=== PATIENT | female | born 1960 | race Caucasian/White ===

== ENCOUNTER → 2024-07-03 | Outpatient (CLI) | payer MEDICARE, SELFPAY ==
--- NOTE | 2024-07-03 08:08 | CT_ITS ---
STUDY: CT SOFT TISSUE NECK WITH CONTRAST REASON FOR EXAM: Female, 63 years old. NHL, IV CONTRAST RADIATION DOSAGE (If Supplied By Facility): CTDIvol = ( 9.88 ) mGy, DLP = ( 952.09 ) mGycm TECHNIQUE: The patient was scanned in a multi-detector CT scanner. High resolution transaxial imaging was performed following intravenous administration of IV 100mL Isovue-370. Sagittal and coronal images were reconstructed. Individualized dose optimization techniques were used for this CT. COMPARISON: None. FINDINGS: Normal bilateral parotid glands. Normal bilateral manager media spaces. Normal bilateral parapharyngeal spaces. Normal bilateral carotid spaces. Normal bilateral sublingual and submandibular glands and spaces. Normal visualized nasopharynx. Normal retropharyngeal space. Normal perivertebral space. Normal visualized bilateral faucial tonsils. The visualized tongue, tongue base and oropharynx are normal. The visualized cervical lymph nodes (levels I-) are within normal size limits, and maintain normal morphology. There is no demonstrated solid or cystic mass lesion. There is no abnormal contrast enhancement. Normal epiglottis, bilateral vallecula and hypopharynx. The pre-epiglottic and paraglottic adipose spaces are normal. Normal visualized bilateral piriform sinuses, aryepiglottic folds, vocal cords, and arytenoid-cricoid articulations. Normal subglottic trachea. Normal bilateral lobes of the thyroid gland. Normal visualized pulmonary apices. Normal visualized paranasal sinuses. There is multilevel degenerative changes of the cervical spine. There is a 5.5 mm x 6.5 mm rounded hypodensity in the left side of the C5 vertebrae. CT/Soft Tissue Neck WITH Contrast IMPRESSION: Normal enhanced CT examination of the soft tissues of the neck. Electronically Signed: Deejay Richmond MD at 13:11 EST ,
--- NOTE | 2024-07-03 08:08 | CT_ITS ---
STUDY: CT CHEST, ABDOMEN T PELVIS WITH CONTRAST REASON FOR EXAM: Female, 63 years old. NHL, IV CONTRAST. History of radiation of the right chest wall. RADIATION DOSAGE (If Supplied By Facility): CTDIvol = ( 9.88 ) mGy, DLP = ( 952.09 ) mGycm TECHNIQUE: Transaxial imaging was performed following intravenous administration of IV 100mL Isovue-370. Multiplanar coronal and sagittal images were reformatted. Individualized dose optimization techniques were used for this CT. COMPARISON: No relevant priors. FINDINGS: CHEST Minimal degree of the deep dependent bibasilar atelectasis. There is no demonstrated pleural abnormality. Normal heart and pericardium. No coronary artery calcification is seen. Normal mediastinum. Normal hilar regions. Normal unenhanced pulmonary arteries. Normal aorta arch and descending thoracic aorta. There are multi-level degenerative changes of the thoracic spine. ABDOMEN Normal liver. Normal gallbladder and extrahepatic biliary system. Normal spleen. Normal pancreas. Normal bilateral adrenal glands. There is a 2.1 cm cyst in the medial anterior aspect of the right kidney. Normal left kidney. Moderate amount of residual food particles and fluid seen within the stomach. Normal small intestine. There are scattered colonic diverticula consistent with diverticulosis. The appendix is visualized and appears normal. Normal abdominal aorta. Normal inferior vena cava. Normal retroperitoneum. Normal abdominal wall. There are mild degenerative changes of the visualized lumbar spine. 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 PELVIS Normal urinary bladder. Normal visualized small intestine. Normal visualized colon. There is no pelvic fluid. There is no pelvic lymphadenopathy or mass lesion. Normal visualized pelvic arteries. CT/CT Chest, Abd, Pel w/Contrast IMPRESSION: Right renal cyst. Scattered sigmoid diverticula. Minimal degree of dependent bibasilar atelectasis. Electronically Signed: Deejay Richmond MD at 12:49 EST ,
[2024-07-03 08:34] LABS: CREATININE FINGERSTICK < 1.0 mg/dL (0.55-1.02); EGFR FINGERSTICK > 60.0000 mL/min (>60)
== END | disposition home or self-care (01) ==
PROVIDERS: Referring Provider Internal Medicine Hematology & Oncology; Visit Provider Internal Medicine Hematology & Oncology
DX: Z01.812 Encounter for preprocedural laboratory examination (principal); C85.99 Non-Hodgkin lymphoma, unspecified, extranodal and solid organ sites; C82.98 Follicular lymphoma, unspecified, lymph nodes of multiple sites
CPT/HCPCS: 70491; 71260; 74177; Q9967

== ENCOUNTER → 2025-07-02 | Outpatient (CLI) | payer MEDICARE, SELFPAY ==
--- NOTE | 2025-07-02 13:10 | CT_ITS ---
PROCEDURE: CT CHEST, ABD, PEL W/CONTRAST 07/02/2025 REASON FOR EXAM: F/U NHL IV CONTRAST ONLY TECHNIQUE: Chest, abdomen and pelvis CT with intravenous contrast. Coronal and Sagittal reconstruction series were provided. One or more dose reduction techniques were used (e.g., Automated exposure control, adjustment of the mA and/or kV according to patient size, use of iterative reconstruction technique. PATIENT PREPARATION: Per protocol ORAL CONTRAST : Was administered CONTRAST: Isovue-300 VOLUME: 87mL. RADIATION DOSE SUMMARY: DLP: 718.48 mGycm COMPARISON: Previous examination dated 07/03/2024 FINDINGS: CT CHEST: Hardware: None Lymph nodes: No axillary, mediastinal or hilar lymphadenopathy. Heart and Vasculature: No pericardial effusion or significant cardiomegaly. Normal aorta. No significant coronary arterial calcifications. Central pulmonary arteries are unremarkable. Lungs and Airways: Clear. No focal consolidation pulmonary nodule or other abnormality. Patent airway. Pleura: No pneumothorax. No effusion. Bones: Unremarkable. Mild degenerative changes. No destructive osseous lesion. CT ABDOMEN/PELVIS: LUNG BASES: Clear. No pleural effusion. LIVER:No enlargement, atrophy, abnormal density, or significant focal lesion. GALLBLADDER/BILIARY:No dilatation or calcification. No gallstones PANCREAS:No lesion, fluid collection, or duct dilatation. SPLEEN:No enlargement or focal lesion. ADRENALS:No mass or enlargement. KIDNEYS AND URETERS:Stable bilateral renal cysts. No hydronephrosis or nephrolithiasis. URINARY BLADDER:No focal wall thickening, trabeculation, lesion, or calculus. REPRODUCTIVE ORGANS:Normal uterus and adnexa. Rectal prolapse. AORTA/VASCULAR:No aneurysm or dissection. RETROPERITONEUM:No mass or adenopathy. LYMPH NODES:No adenopathy. INTRAPERITONEAL SPACE:No free air. No significant fluid collection. No mass. STOMACH/BOWEL/MESENTERY:No mass, obstruction, or bowel wall thickening. No evidence of appendicitis or diverticulitis ABDOMINAL WALL:No fluid collections or foreign bodies. No mass or adenopathy. BONES:No osseous lesions or fractures. Stable grade 1 anterolisthesis of L4 on L5 related to facet arthropathy. No destructive osseous lesion. CT/CT Chest, Abd, Pel w/Contrast IMPRESSION: No evidence of recurrent or metastatic disease. Stable examination. No overt lymphadenopathy. Stable renal cysts. Reading Location: [id number]
--- NOTE | 2025-07-02 13:10 | CT_ITS ---
PROCEDURE: SOFT TISSUE NECK WITH CONTRAST 07/02/2025 REASON FOR EXAM: F/U NHL IV CONTRAST ONLY TECHNIQUE: Procedure Code: CTNEW Modality: CT Procedure: SOFT TISSUE NECK WITH CONTRAST CONTRAST: Isovue 370 VOLUME: 100 mL One or more dose reduction techniques were used (e.g., Automated exposure control, adjustment of the mA and/or kV according to patient size, use of iterative reconstruction technique). RADIATION DOSE SUMMARY: CTDlvol: 8.6 mGy DLP: 718.48 mGycm COMPARISON: Prior study dated July 03, 2024. FINDINGS: Airway: Midline and patent. Salivary glands: Unremarkable. Lymph nodes: No cervical lymphadenopathy. Thyroid: Unremarkable. Vasculature: Carotid arteries and internal jugular veins are unremarkable. Orbits: Unremarkable at visualized levels. Paranasal sinuses and mastoids: Grossly clear at visualized levels. Lung apices: Clear. Upper mediastinum: Visualized mediastinum is unremarkable. Bones: Unremarkable. Other: CT/Soft Tissue Neck WITH Contrast IMPRESSION: NORMAL CONTRAST-ENHANCED CT OF THE SOFT TISSUES OF THE NECK. Stable examination. Reading Location: [place] [id number]
== END | disposition home or self-care (01) ==
LOC: CT 12:36
PROVIDERS: PCP Student in an Organized Health Care Education/Training Program; Referring Provider Internal Medicine Hematology & Oncology; Visit Provider Internal Medicine Hematology & Oncology
DX: C82.98 Follicular lymphoma, unspecified, lymph nodes of multiple sites (principal); C85.99 Non-Hodgkin lymphoma, unspecified, extranodal and solid organ sites
CPT/HCPCS: 70491; 71260; 74177; Q9967